=== PATIENT | female | born 1955 | race Caucasian/White ===

== ENCOUNTER 2021-08-31 07:25 | Outpatient (RCR) | payer BC, SELFPAY | END 2021-09-01 14:22 | disposition home or self-care (01) | PROVIDERS: PCP Family Medicine; Visit Provider Orthopaedic Surgery Sports Medicine | DX: M25.561 Pain in right knee (principal); Z51.89 Encounter for other specified aftercare | CPT/HCPCS: 97110; 97530 ==

== ENCOUNTER 2023-02-13 07:13 | Day surgery (SDC) | payer MEDICARE, BC, SELFPAY ==
[2023-02-13] VITALS (16 sets, daily range): BP systolic 101–147; BP diastolic 65–91; PULSE 53–74; RESP 12–16; TEMP 36.3–36.8; O2SAT 95–99; BMI 25.9
[2023-02-13] MEDS: LACTATED RINGERS 1000 ML 1,000 ML 100 ML IV (07:05)
[2023-02-13] MEDS: SODIUM CHLORIDE 0.9 % (FLUSH) 10 ML SYRINGE IVF (07:45)
[2023-02-13] MEDS: CEFAZOLIN 2 GM in 0.9 % SODIUM CHLORIDE Mini-bag 100 ML IVPB (08:45)
--- NOTE | 2023-02-13 10:12 | PM.ORPRC ---
Procedure Note Date of procedure: 02/13/23 Procedure: PREOPERATIVE DIAGNOSIS: 1. Left knee medial meniscus root tear POSTOPERATIVE DIAGNOSIS: 1. Left knee medial meniscus root tear, subacute 2. 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 Left knee arthroscopic partial medial meniscus root repair 2. Left knee medial femoral condyle chondroplasty 3. Left knee microfracture intercondylar notch SURGEON: Sanjay Narvaez M.D. SR. MERCHANDISE PLANNER: Grant Christianson PA-C. Of note, a skilled kindergarten instructional assistant was critical for this case to aid in patient positioning, knee manipulation, skill to manipulate arthroscopic instruments and camera, instrument exchange, and closure. ANESTHESIA: Spinal EBL: 10 mL TOURNIQUET: 50 minutes at 250 torr IMPLANTS: Arthrex 4.75 MM peek SwiveLock suture anchor COMPLICATIONS: None evident INDICATIONS: The patient is a pleasant 67-year-old female who has experienced left knee pain particularly with any twisting or turning. Physical exam was concerning for medial meniscus tear, this was confirmed on MRI, but more specifically as at the posterior root. The medial meniscus had otherwise extruded into the medial gutter. Attempted nonoperative management has been tried, and failed. Thus, surgery was recommended for stabilization of the medial meniscus posterior root. FINDINGS: Grade 2 chondromalacia of broadly throughout the medial femoral condyle. No full-thickness chondral defects evident. There is grade 3-4 chondromalacia patella median ridge and start of lateral facet. Trochlear groove showed grade 2 chondromalacia. Lateral compartment showed healthy articular cartilage. Intact lateral meniscus. Intact ACL and PCL. Medial meniscus showed a radial tear through the posterior root near the root. Superior to have some chronicity as was somewhat fibrotic at the tear edges without significant hemorrhagic tissue. DESCRIPTION OF PROCEDURE: After a thorough discussion of risks, benefits, and alternatives, the patient was brought to the operating room and placed upon the operating table. Induction of anesthesia was undertaken as previously noted. 1 g IV Ancef was administered within 1 hr of incision preoperatively. Appropriate time-out was performed identifying proper patient, site, and procedure. The left lower extremity was prepped and draped in the appropriate sterile fashion using ChloraPrep. The limb was exsanguinated and tourniquet inflated. Anterolateral and anteromedial portals were established with an 11 blade, and a diagnostic arthroscopy was performed. This identified the findings as noted above. Following the diagnostic arthroscopy, the meniscal root was debrided with a 4.0 mm torpedo shaver. This was to freshen the meniscal edge. This also allowed us to debride some the synovium on the medial wall within the notch. A flip cutter guide for the posterior meniscus root was utilized and placed in the desired fashion where the medial meniscus posterior root should attach. A 6 mm flip cutter was then drilled up from the medial tibial crest region, and exited exactly where our desired spot was. The blade was flipped, and it was retro drilled approximately 5-10 mm deep at most. Attention was then turned to securing of the meniscal root. The meniscal scorpion device was utilized to pass 2 separate # 0 fiber link sutures in a luggage tag fashion. Excellent security of the meniscus was achieved. These tails were brought down through the bone tunnel that was drilled with the flip cutter, using a shuttle suture. After providing tension on this, the meniscus indeed became stable, and improved in position. The sutures were anchored with a 4.75 mm peek SwiveLock suture anchor after drilling, tapping, and placing the anchor. The meniscus was reprobed and found to be stable. Chondroplasty was performed on the medial femoral condyle using a 4.0 mm torpedo shaver. This was taken back just to the a stable chondral edge subtle loose pieces were debrided. At this stage, the Arthrex power pick device was utilized to microfracture the intercondylar notch to aid with the healing of the meniscus repair. Instruments were removed, excess fluid was drained, and closure performed with 2-0 Vicryl for subcutaneous closure of the tibial incision, and 4-0 Monocryl for subcuticular closure and portal closure. with Steri-Strips. Dressings were applied, the tourniquet deflated, and the patient was awoken from anesthesia and transferred to the PACU in stable condition. A skilled kindergarten instructional assistant was critical for this case to aid in patient positioning, knee manipulation, skill to manipulate arthroscopic instruments and camera, instrument exchange, and closure. PLAN: 1. Toe-touch weightbear left lower extremity. Crutch / walker ambulation assistance PRN. 2. Ice, acetominophen and/or ibuprofen, and oxycodone for pain as needed. 3. Knee range of motion and quad sets/straight leg raise regularly 4. Follow up with PA visit in 1-2 weeks for a wound check.
--- NOTE | 2023-02-13 10:15 | W.PM.NB ---
Nerve Block Nerve Block Time Seen by Provider: 10:07 Date Seen: 02/13/23 Type of block requested by surgeon for post-operative analgesia: geniculars Side: right Time out performed: Yes Verification of patient name: Yes Verification of date of : Yes Site marking: site marked Name of person performing procedure: Jeff Alcantara Procedure Ultrasound guided. Images saved: No Medications given in 5ml increments after negative aspiration: Ropivicaine %: 0.5 mL: 15 Needle gauge: 25 Patient tolerated procedure well: Yes Block Charges Block Charge (with Pro Fee): Genicular Nerve Block Use of Ultrasound Machine for Block: No
--- NOTE | 2023-02-13 10:16 | W.ANESCHARGE ---
Anesthesia Charges Start Date/Time Anesthesia Start Date: 02/13/23 Anesthesia Start Time: 08:37 Stop Date/Time Anesthesia Stop Date: 02/13/23 Anesthesia Stop Time: 10:15
--- NOTE | 2023-02-13 11:11 | SUR.PHASEII ---
TOLERATING COFFEE AND WATER.
[2023-02-13] MEDS: ONDANSETRON 2 MG/ML inj 4 MG IVP (11:38)
--- NOTE | 2023-02-13 12:04 | W.PM.H&PU ---
History & Physical Update History & Physical Update H&P Reviewed and patient assessed: No changes noted
== END 2023-02-13 12:45 | disposition home or self-care (01) ==
PROVIDERS: PCP Family Medicine; Visit Provider Orthopaedic Surgery Sports Medicine
PROC: (CPT 29882; principal; 2023-02-13 09:00)
DX: M23.222 Derangement of posterior horn of medial meniscus due to old tear or injury, left knee (principal); M94.262 Chondromalacia, left knee; G89.18 Other acute postprocedural pain
CPT/HCPCS: 29882; 29879; 01400; 64454; 97161; C1713; J0690; J2250; J2371; J2405; J2704; J2795; J3010; J7120; L1833